=== PATIENT | male | born 1955 | race Caucasian/White ===

== ENCOUNTER → 2016-07-11 | Outpatient (CLI) | payer BC ==
[~2016-07-11] MED LIST: CLX20 PO; NAPR-1169 PO; OMEP40CA PO
[2016-07-11 18:02] LABS: ALT/SGPT 60 U/L (12-78); BLOOD UREA NITROGEN 20 mg/dl (7-18); BUN/CREATININE RATIO 23.8 (10-20); CALCIUM 9.4 mg/dl (8.5-10.1); CARBON DIOXIDE 30 mmol/L (21-32); CHLORIDE 102 mmol/L (98-107); CHOLESTEROL 284 mg/dl (0-200); CREATININE 0.82 mg/dl (0.60-1.40); GLUCOSE 89 mg/dl (70-99); POTASSIUM 3.9 mmol/L (3.5-5.1); SODIUM 140 mmol/L (136-145); TRIGLYCERIDES 326 mg/dl (0-150); VERY LOW DENSITY LIPOPROT CALC 65 mg/dl
[2016-07-11 18:06] LABS: ALKALINE PHOSPHATASE 95 U/L (45-117); AST/SGOT 38 U/L (15-37); CHOLESTEROL/HDL RATIO 5.4; HDL CHOLESTEROL 53 mg/dl; LDL CHOLESTEROL CALCULATED 166 mg/dl
== END | disposition home or self-care (01) ==
LOC: C.LABPVFM 13:32
PROVIDERS: ATTEND Family Medicine
DX: I10 Essential (primary) hypertension (principal); E78.1 Pure hyperglyceridemia

== ENCOUNTER → 2016-08-14 | Outpatient (CLI) | payer BC ==
[2016-08-16 18:42] LABS: ALBUMIN 4.7 G/DL (3.8-4.8); GAMMA GLOBULIN 1.3 G/DL (0.8-1.7); IMMUNOFIXATION IGA SERUM 45 MG/DL (81-463); IMMUNOFIXATION IGG SERUM 1699 MG/DL (694-1618); IMMUNOFIXATION IGM SERUM 59 MG/DL (48-271); MONOCLONAL PROTEIN BAND 1 1.1 G/DL (NOT DETECTED); TOTAL PROTEIN 7.7 G/DL (6.2-8.3)
== END | disposition home or self-care (01) ==
LOC: C.LABPVFM 15:35
PROVIDERS: ATTEND Family Medicine
DX: R77.1 Abnormality of globulin (principal)

== ENCOUNTER → 2017-01-01 | Outpatient (CLI) | payer BC | END | disposition home or self-care (01) | LOC: C.RDSM 13:45 | PROVIDERS: ATTEND Physical Medicine & Rehabilitation Sports Medicine | DX: M25.561 Pain in right knee (principal) ==

== ENCOUNTER → 2017-07-11 | Outpatient (CLI) | payer BC | END | disposition home or self-care (01) | LOC: C.RDSM 16:26 | PROVIDERS: ATTEND Physical Medicine & Rehabilitation Sports Medicine | DX: M25.511 Pain in right shoulder (principal); M25.512 Pain in left shoulder ==

== ENCOUNTER → 2017-08-30 | Outpatient (CLI) | payer BC ==
[~2017-08-30] MED LIST changes: +CITA-295 PO; +FENO160T PO; +MXZC25 PO; +PRLSR20 PO
[2017-08-30 17:43] LABS: ALBUMIN 4.1 gm/dl (3.4-5.0); ALT/SGPT 43 U/L (12-78); AST/SGOT 32 U/L (15-37); BLOOD UREA NITROGEN 23 mg/dl (7-18); CALCIUM 9.5 mg/dl (8.5-10.1); CARBON DIOXIDE 26 mmol/L (21-32); CREATININE 0.98 mg/dl (0.60-1.40); GLUCOSE 95 mg/dl (70-99); POTASSIUM 4.2 mmol/L (3.5-5.1); SODIUM 137 mmol/L (136-145)
[2017-08-30 17:46] LABS: ALKALINE PHOSPHATASE 65 U/L (45-117); CHOLESTEROL 220 mg/dl (0-200); LDL CHOLESTEROL CALCULATED 135 mg/dl; TOTAL PROTEIN 8.4 gm/dl (6.4-8.2)
== END | disposition home or self-care (01) ==
LOC: C.LABPVFM 11:54
PROVIDERS: ATTEND Family Medicine
DX: F32.9 Major depressive disorder, single episode, unspecified (principal); K21.9 Gastro-esophageal reflux disease without esophagitis; I10 Essential (primary) hypertension; E78.5 Hyperlipidemia, unspecified; D47.2 Monoclonal gammopathy; E78.1 Pure hyperglyceridemia

== ENCOUNTER 2017-09-25 08:12 | Inpatient (IN) | payer BC ==
[2017-09-07 11:54] VITALS: BMI 33.0
--- NOTE | 2017-09-07 12:31 | PAT Medication Instructions ---
Service Date Sep 07, 2017. Current Home Medication List Citalopram Hydrobromide (Citalopram), 20 MG PO QAM Fenofibrate (Tricor), 160 MG PO QAM Omeprazole (Prilosec), 40 MG PO QAM Triamterene/Hctz (Triamterene/Hctz 37.5-25MG Tab), 1 TAB PO QAM Medication Instructions For Your Scheduled Surgery - Hold the following medications the morning of surgery: Fenofibrate (Tricor), 160 MG PO QAM Triamterene/Hctz (Triamterene/Hctz 37.5-25MG Tab), 1 TAB PO QAM - Take the following medications the morning of surgery with a sip of water: Citalopram Hydrobromide (Citalopram), 20 MG PO QAM Omeprazole (Prilosec), 40 MG PO QAM If you have any questions please call us at [phone] or [phone] or [phone]
--- NOTE | 2017-09-07 13:01 | DIAGNOSTIC IMAGING REPORT ---
CHEST 2 VIEWS ROUTINE HISTORY: Preop. COMPARISON: Chest 10/07/2008. FINDINGS: The lungs are clear. Cardiac silhouette is normal in size. No pleural effusions. No pneumothorax. IMPRESSION: No acute process. Electronically signed by: Devan Escamilla M.D. 09/07/2017 1:00 PM Dictated Date/Time: 09/07/2017 12:57 PM
[2017-09-07 13:24] LABS: INR 0.9 (0.9-1.1); PTT PATIENT 25.8 SECONDS (21.0-31.0)
--- NOTE | 2017-09-10 12:49 | History and Physical ---
History & Physical Date of Service Sep 10, 2017. History & Physical HISTORY & PHYSICAL Name: RADHA AHUJA : 1955 Date of Admission 09/07/2017 DATE OF SURGERY: 09/25/2017 CHIEF COMPLAINT: Right knee pain x3 years. HISTORY OF PRESENT ILLNESS: The patient is a pleasant 61-year-old male who is here today for preoperative history and physical. He is scheduled to have a right total knee arthroplasty by Dr. Arechiga on September 25, 2017, at the [facility]. He has been having issues with his right knee for many years, he states the last 30 to 40 years. He had a history of having a knee arthroscopy in 1970. He states he was doing well for a long time and then developed worsening pain over the last 3 years. He has had previous corticosteroid injections with no significant long-lasting effect. He has also had a couple of series of viscosupplementation. His last one being at the beginning of July with no significant relief. He states he has pain on a daily basis. His pain is in the front and medial aspect of his knee, radiates down into his zuniga occasionally. His pain is increased with activity and weightbearing. He has decreasing activities of daily living due to pain in his right knee. He has pain with range of motion and limited motion. He has had joint effusions in the past, which have been aspirated. He has tried nonsteroidal anti-inflammatory medications such as ibuprofen and Aleve in the past. He states that it does no longer give him too much relief either. His aggravating activities include walking, going up and down steps. He has pain at rest and pain at night. He was recently seen by Dr. Arechiga, and conservative treatment was discussed as well as surgical intervention. He wished to proceed with surgery. He has had x-rays which have confirmed end- stage degenerative joint disease of his right knee and he wished to proceed with surgery. He does not use an assistive device to assist with ambulation currently. PAST MEDICAL HISTORY: 1. Hypertension. 2. High triglycerides. 3. History of anxiety/depression. 4. History of MGUS, which is a precursor for multiple myeloma that was found for some blood work. He has not had any symptoms of that or any further workup. 5. He has had cervical spine degenerative joint disease with history of corticosteroid injections. 6. Acid reflux. 7. Hiatal hernia. 8. Tobacco use. CURRENT MEDICATIONS: 1. Citalopram 20 mg p.o. daily. 2. Hydrochlorothiazide/triamterene 25/37.5 mg daily. 3. Fenofibrate 160 mg daily. 4. Naproxen 550 mg as needed for arthritis, which he takes on a rare occasion as it no longer helps him. 5. Omeprazole 40 mg p.o. daily. ALLERGIES: HE IS ALLERGIC TO CODEINE WHICH CAUSES A RASH AND HYPERACTIVITY. He states that he has tolerated other pain medications without any issues. FAMILY HISTORY: His father had a history of type 2 diabetes and at the age of 60 with colon cancer. His mother had a history of esophageal cancer and at the age of 76. PAST SURGICAL HISTORY: 1. Bilateral carpal tunnel release. 2. Knee spur removed from his left knee in 1968. 3. Rhinoplasty in 1999. 4. Right shoulder rotator cuff repair of his right shoulder. He has also had a left shoulder arthroscopy in the past. 5. Right knee arthroscopy in 1970 and appendectomy in 2009. 6. Lasik surgery approximately 3-4 years ago. SOCIAL HISTORY: He does smoke cigarettes. He states 1-2 cigarettes per day. He just started about 5 months ago. He states that it is stress related, and he quit drinking alcohol. He states that he is able to quit and I recommended he quit as soon as possible. Denies any alcohol use or drug use at this time. He lives with his . He does not use an assistive device to assist with ambulation. He does have crutches available to use after surgery and potentially a walker. He would like to go home after surgery with outpatient physical therapy. REVIEW OF SYSTEMS: He denies any headaches, migraine, seizures, syncopal episodes, lightheadedness, or dizziness. He denies any recent cough, cold, fevers, chills, or flu-like symptoms. He denies any recent hospitalizations. He denies any history of bleeding or clotting disorders, blood clots, embolisms , or phlebitis, history of frequent infections, poor wound healing, or MRSA. Denies any chest pain or shortness of breath. Denies any heart palpitations. He states he occasionally gets heartburn, but the medication that he takes helps with that. He denies any abdominal pain, nausea, vomiting, diarrhea, or constipation. He denies any urinary symptoms such as foul-smelling urine frequency or urinary tract infections. He states that he urinates normal for a 61-year-old male. Denies any prostate problems. PHYSICAL EXAM: General: He is alert and oriented x3. He is in no acute distress. He is a well-dressed, well-nourished male. Normal mood and affect. Height is 6 feet 0 inches, and weight is 235 pounds. HEENT: Head is atraumatic , normocephalic. Extraocular movements are intact. Pupils are equal, round, and reactive to light. Sclerae are normal. Ears, hearing is grossly normal. TMs are clear with normal light reflex. Nose, nares are patent bilaterally. Normal turbinates. Throat, oropharynx is clear. Mucous membranes moist. Good dentition. Uvula midline. Neck: Supple. Nontender to palpation. Tolerates gentle range of motion with some crepitation. No carotid bruits. Trachea midline. Lungs: Clear to auscultation bilaterally. No adventitious sounds. No accessory muscle use. His chest is nontender to palpation. Heart is regular rate and rhythm. Normal S1, S2. No murmurs appreciated. Abdomen is soft, mildly obese, nondistended. Bowel sounds are heard in all 4 quadrants. On exam of his right knee, he is able to independently straight leg raise. He ambulates with a slight antalgic gait with no assistive device today. He is able to extend his knee to 0-5-115 degrees of flexion. He has tenderness in the lateral side of the knee with a small effusion. He has a 2+ posterior tibial pulse. He has a healed lateral incision over the knee. Cruciate and collateral ligaments are intact without notable laxity, positive valgus alignment. Strength is normal. Toes, ankle, knee flexion and extension are intact. He has intact straight leg raise. Full hip range of motion without any discomfort today. RADIOLOGY IMAGES: X-rays of his knee show severe lateral compartment osteoarthritis of the right knee with [id number] changes. There is no fracture identified. There is osteophyte formation, subchondral sclerosis. No previous fracture or evidence of hardware. IMPRESSION: End-stage osteoarthritis of his right knee with valgus alignment. PLAN: The patient is scheduled for an elective right total knee arthroplasty with Dr. Arechiga on September 25, 2017, at the [facility]. Risks and complications of surgery were explained to the patient and include but are not limited to, infection, pain, bleeding, scarring, nerve and blood vessel damage, wound problems, weakness, stiffness, incomplete relief of symptoms, hardware failure, loosening, wear, fracture, postop manipulation, blood clot, embolism, heart attack, stroke, and . All questions were answered, and informed consent was obtained. He will be admitted to the hospital for a day or 2 after surgery. He would like to go home with his to attend outpatient physical therapy after surgery. He was given a prescription for a rolling walker as he most likely will need this after surgery, and if he does not have one available to him, he can get one with his local DME provider. We discussed pain medication. He is okay with oxycodone and hydrocodone, which we can use postoperatively. Dental prophylaxis after surgery was discussed. He was instructed only usage of CHG cloths prior to surgery. He will have preadmission testing later today in which we will obtain a preoperative CBC, BMP , PT, PTT, type and screen, chest x-ray, EKG. He will also need medical clearance from his family physician, Dr. Meli Durand. He does have an appointment scheduled in the beginning of September with her. All questions were answered today. He knows to call with any further problems, questions, or concerns. We will use Lovenox for DVT prophylaxis for 2 weeks after surgery and then aspirin 325 mg twice daily after surgery. A prescription for therapy was also provided to him today.
[~2017-09-25] VITALS: Ht 182.9 cm; Wt 111.1 kg
[2017-09-25] VITALS (8 sets, daily range): BP systolic 106–122; BP diastolic 63–76; PULSE 54–66; TEMP 36.6–37; O2SAT 94–96; Ht 182.9 cm; Wt 111.1 kg
[~2017-09-25 08:12] MED LIST changes: +ACETAMINOPHEN 500 MG TAB PO SCH; +BUPIVACAINE 0.5 % 5 MG/1 ML PF 10ML VIAL ONE; +CEFAZOLIN 2000MG IV PUSH 15 ML IV SCH; +CLONIDINE HCL 0.1 MG/24 HR TRANSDERM SYS TD SCH; -CLX20 PO; +CeleBREX 200 MG CAP PO SCH; +DEXAMETHASONE 4 MG TAB PO SCH; +FAMOTIDINE 20 MG TAB PO SCH; +GABAPENTIN 600 MG PO SCH; +LACTATED RINGER'S 1000ML 1,000 ML IV SCH; +LACTATED RINGER'S 1000ML 500 ML IV SCH; +LACTATED RINGER'S 1000ML IV SCH; +METOCLOPRAMIDE HCL 10 MG TAB PO SCH; -NAPR-1169 PO; -OMEP40CA PO; +OXYCODONE HCL 10 MG TABCR (OXYCONTIN) PO SCH; +ROPIVACAINE 5MG/ML 30 ML 150 MG, BUPIVACAINE 0.5% MPF INJ 30 ML, EpINEphrine HCL INJ 0.... INFIL SCH; +TRAMADOL HCL 50 MG TAB PO SCH; +TRANEXAMIC ACID INJ 1,000 MG x 1 Bag Intra-Op IV SCH
[2017-09-25] MEDS ORDERED: NAPR1TAB9 PO (08:44)
--- NOTE | 2017-09-25 09:02 | DIAGNOSTIC IMAGING REPORT ---
R TIBIA/FIBULA 2 VIEWS ROUTINE HISTORY: 61 years-old Male pre op right TKA degenerative joint disease of the right knee with chronic right knee pain COMPARISON: None available TECHNIQUE: 2 views of the right tibia and fibula FINDINGS: No acute fracture or dislocation. Tricompartmental osteoarthritis about the knee appears severe. Small joint effusion is suspected. No opaque foreign body. IMPRESSION: 1. No acute fracture or dislocation. 2. Tricompartmental osteoarthritis about the knee with suggested small joint effusion. The above report was generated using voice recognition software. It may contain grammatical, syntax or spelling errors. Electronically signed by: Delbert Carlin M.D. 09/25/2017 9:00 AM Dictated Date/Time: 09/25/2017 8:59 AM
[2017-09-25] MEDS ORDERED: MIDAZOLAM HCL 1 MG/ML 2ML VIAL ONE ×2 (09:08→12:04)
[2017-09-25] MEDS ORDERED: EpHEDrine SULFATE INJ 50 MG/ML AMP IV PRN (09:30)
[2017-09-25] MEDS ORDERED: ATROPINE SULFATE 0.1 MG/ML 5ML SYR IV PRN (09:30)
[2017-09-25] MEDS ORDERED: ONDANSETRON INJ 2 MG/ML 2 ML VIAL IV PRN ×2 (09:30→14:30)
[2017-09-25] MEDS ORDERED: FENTANYL CITRATE INJ 50 MCG/1 ML 2 ML VIAL IV PRN (09:30)
--- NOTE | 2017-09-25 09:34 | History & Physical Bridge Note ---
H&P Re-Evaluation Bridge Note: I have examined the patient, reviewed the History & Physical and in the interval since the performance of the History & Physical I have noted the following changes of clinical significance: No changes noted
[2017-09-25] MEDS ORDERED: FENTANYL CITRATE INJ 50 MCG/1 ML 2 ML VIAL ONE (09:38)
[2017-09-25] MEDS ORDERED: BACITRACIN 50000 UNIT VIAL ONE (10:03)
[2017-09-25] MEDS ORDERED: POVIDONE-IODINE OP SOLN 30 ML BTL ONE (10:03)
[2017-09-25] MEDS ORDERED: ORTHO JOINT ANESTHETIC ONE (10:03)
[2017-09-25] MEDS ORDERED: TRANEXAMIC ACID INJ 1,000 MG in SODIUM CHLORIDE 0.9% 100ML 100 ML IV SCH (11:00)
[2017-09-25] MEDS ORDERED: PROPOFOL IV EMULSION 10 MG/ML 20 ML VIAL ONE ×3 (12:07→13:27)
[2017-09-25] MEDS ORDERED: LIDOCAINE HCL 2% 2 ML VIAL (20MG/ML) ONE (12:07)
--- NOTE | 2017-09-25 14:03 | [facility] Post Operative Brief Note ---
Immediate Operative Summary Operative Date September 25, 2017. Pre-Operative Diagnosis End-stage osteoarthritis of his right knee with valgus alignment Post-Operative Diagnosis End-stage osteoarthritis of his right knee with valgus alignment Procedure(s) Performed Right total knee arthroplasty Surgeon Dr. Anshul Arechiga Grain Shoveler Surgeon(s) Ashanti aleman Estimated Blood Loss 100ml Findings Consistent with Post-Op Diagnosis Specimens A. Bone and tissue right knee Drains None Anesthesia Type MAC Spinal Regional Complication(s) none Disposition Accompanied Pt To Recover: no Disposition: Recovery Room / PACU
[2017-09-25] MEDS ORDERED: BISACODYL 10 MG SUPP PR PRN (14:30)
[2017-09-25] MEDS ORDERED: TAMSULOSIN HCL 0.4 MG CAP PO PRN (14:30)
[2017-09-25] MEDS ORDERED: METOCLOPRAMIDE HCL INJ 5 MG/ML 2 ML VIAL IV PRN (14:30)
[2017-09-25] MEDS ORDERED: ACETAMINOPHEN 325 MG TAB PO PRN (14:30)
[2017-09-25] MEDS ORDERED: KETOROLAC TROMETHAMINE 30 MG/ML VIAL IV. SCH (14:30)
[2017-09-25] MEDS ORDERED: MAGNESIUM HYDROXIDE SUSP 30 ML UDC PO PRN (14:30)
[2017-09-25] MEDS ORDERED: SOD PHOSPHATE/SOD BIPHOSPHATE ENEMA 132 ML BTL PR PRN (14:30)
[2017-09-25] MEDS ORDERED: DiphenhydrAMINE HCL 50 MG/ML VIAL IV PRN (14:30)
[2017-09-25] MEDS ORDERED: MoRPHine SULFATE 4 MG/ML 1 ML CARP\\VIAL IV PRN (14:30)
--- NOTE | 2017-09-25 14:38 | [facility] Operative Report ---
Operative Report Operative Date September 25, 2017. Pre-Operative Diagnosis End-stage osteoarthritis of his right knee with valgus alignment Post-Operative Diagnosis End-stage osteoarthritis of his right knee with valgus alignment Procedure(s) Performed Right total knee arthroplasty Surgeon Dr. Anshul Arechiga Marketing Services Coordinator Surgeon(s) Ashanti aleman Estimated Blood Loss 100ml Specimens A. Bone and tissue right knee Drains None Anesthesia Type MAC Spinal Regional Complication(s) none Disposition no Recovery Room / PACU Indications Patient is a 61-year-old male with right knee pain refractory to nonsurgical methods of management. He has had a prior lateral meniscectomy done approximately 40 years ago. Description of Procedure Informed consent obtained. Patient identified as page Jennifer. Preop surgical timeout performed. Preop dose of IV antibiotics given. Positioned supine bump under the right hip and right knee. Tourniquet on right thigh. Prepped and draped in usual sterile fashion. DVT prophylaxis with foot pumps intraoperatively. DVT prophylaxis postoperatively with early mobility Lovenox and mechanical devices. Exam under anesthesia demonstrated range 0/10/110 with valgus alignment and no significant collateral ligament laxity. The patient had a previous lateral incision for lateral meniscectomy. I marked out a curvilinear medial incision no closer than 7 cm to this prior lateral incision. Tourniquet inflated after exsanguinating the leg. Tourniquet set at 250 mmHg. A curvilinear medial incision was made lateral flap was elevated. Medial parapatellar arthrotomy performed. Soft tissue on the superior aspect of the distal femur was removed. A medial release was performed initially conservative but due to difficulty subluxating the knee this was extended around the posterior medial corner and the semimembranosus needed to be released. Retropatellar fat pad was resected and the synovial reflection in the lateral gutter was released. A pin was placed into the tibial tubercle to protect the patellar tendon. Due to the significant lateral scarring abnormal proximal tibial geometry went ahead and did a quadriceps snip and remove the pin. After debriding more of the cruciate ligaments and more medial release I was able to subluxate the tibia. The ACL was attenuated and likely chronically torn PCL intact. There was significant scarring laterally lateral meniscus was absent and there was wear into the posterior lateral tibial plateau of about 3- 5 mm. Medial compartment looked relatively normal. The trochlea showed grade 2 and 3 chondrosis. There were large osteophytes throughout the knee which were removed including the patella. The patellar articular cartilage was softened and probably had no more than grade 2 chondrosis in the median ridge but there were large marginal osteophytes around the patella. Based upon preoperative templating the starting point for the tibial intramedullary alignment guide was anterior to the medial tibial spine. The spot was identified and commercial pilot hole was drilled in place. The patient's tibial plateau was significantly angled posteriorly i.e. posterior slope. And it was also offset posteriorly. The guide was aligned to the medial third of the tibial tubercle and pinned in place. I initially went with a conservative resection of 6 mm off of the medial side which corresponds to a partial cut laterally leaving several millimeters of the posterior medial depression. Care was taken to expose laterally again with the significant scarring and define the lateral border of the tibial plateau. The extra medullary alignment jevon was utilized confirming slope and varus valgus alignment. The cut was then made. Attention is turned the distal femur where commercial pilot hole was drilled into the distal medial femur followed by insertion of the cutting guide set at a 12 mm distal cut angled at 6 based upon preoperative templating. The guide was pinned into place and the cut was made but our extension gap was tight and asymmetric. I went ahead and cut to and then an additional 2 mm off of the proximal tibia and added 3 posterior slope. This resulted in a tight 8 laterally and a 10 medially. I believe that this could be a correctable soft tissue balancing and effort no further cutting was necessary. The tibia was sized to a 5 and eventually the keel was drilled and punched in the trial was inserted. On the femur the the distal femoral sizing guide was applied and sized to a 5. The external rotation drill holes were made and parallel to the epicondylar axis. Care was taken to avoid internal rotation of the femoral component. The guide was then pinned in place and the anterior posterior cuts and chamfer cuts were made taking care to protect the collateral ligaments. Large osteophytes were noted in the back of the knee and there was a extraordinarily large osteophyte versus a very large fabella in the back of the lateral side of the knee. This was all removed carefully. The flexion gap was an asymmetric tight 8 on the medial side. I went ahead and went back and rechecked all my bony cuts and everything looked appropriate. I then went ahead and performed an inverted cruciform release. The superior geniculate vessels were identified. The lateral soft tissues were then released and the subcutaneous tissues with a knife down the level of the tibia and then from the level of the LCL to the patellar tendon at the level of the joint line. This improved the tightness in extension. The knee remained tight in flexion. I then went ahead and fractionally released to the the lateral collateral ligament. The popliteus tendon was not encountered and may have been pathologically gone. The box cutting guide was applied. Lateralized and the box cut was made. The trial femur was applied and the knee was reduced. There was full extension neutral alignment trace MCL laxity in mid position otherwise the knee was stable. Perhaps a trace bit of MCL laxity at 90 flexion. Attention was turned to the patella where the patella thickness measured 30.5 mm. A 41 mm oval dome patella was selected. The guide was set to preserve 18 mm of bone. The cut was made cartilage medially was removed. The patellar paddle was aligned medial and distal and appropriately aligned to the slightly flexed knee. This was done with tension on the quadriceps as well. The lug holes were drilled and patella tracking was then was fine with no hands technique. At this time the tourniquet was let down meticulous hemostasis was performed copious irrigation with saline was performed. Components were prepared on the back table the canals were plugged and after a being down for approximately 20 minutes the leg was re-exsanguinated. The bony surfaces were prepared with pulse lavage and meticulously dried. Or the joint mix was injected in the back of the knee previously. The femur tibia and patella were cemented in place and held in extension with a trial spacer. Extraneous cement was removed. The back of the knee was inspected once the cement had hardened. We did not lavage was performed for a 3 -5 minutes. Trialing again was performed and the 10 mm thick spacer showed trace laxity at mid position and 90. Otherwise there was intact stability and good patellar tracking for extension. Final polyethylene spacer was inserted. TXA was given. Composite patellar thickness was 30 mm. Morton assisted flexion was 120 the knee was fully straight. The back of the knee was inspected for cement removed as encountered. The extensor mechanism was closed first by repairing the quadriceps snip with #2 FiberWire. Then this was repaired with interrupted #2 FiberWire throughout the length of the extensor mechanism down to the equator the patella. This gave a solid repair of the knee could be flexed 220 without any undue tension on the repair or gaping. Patellar tracking was fine. Below the equator the patella this was repaired with interrupted #1 Vicryl's. The skin was closed in layers with 0 2-0 Vicryl maryjane on skin soft sterile dressing was applied Xeroform 4 x 4's ABD and full-length Kurtis wrap. Patient sent to the floor with a knee immobilizer. Components inserted for the [employer] PFC Sigma rotating platform knee size 5 right posterior stabilized femur a size 5 tibial tray with a 10 mm thick posterior stabilized rotating platform polyethylene insert and a 41 mm 3 peg oval dome patella. Patient is awake from anesthesia without difficulty and taken to the recovery room in stable condition. There were no complications. Specimens were the resected bone. Counts were correct in the case. Blood loss was 100 cc. At the conclusion operation there was no unavailable to speak to. The patient will be rehabilitated according to the total knee protocol. I will limit his flexion to 90 all in the hospital due to his quadriceps snip. I attest to the content of the Intraoperative Record and any orders documented therein. Any exceptions are noted below.
--- NOTE | 2017-09-25 14:45 | [facility] Operative Report ---
Operative Report Operative Date September 25, 2017. Pre-Operative Diagnosis End-stage osteoarthritis of his right knee with valgus alignment Post-Operative Diagnosis End-stage osteoarthritis of his right knee with valgus alignment Procedure(s) Performed Right total knee arthroplasty Surgeon Dr. Anshul Arechiga Machine Packer Surgeon(s) Ashanti aleman Estimated Blood Loss 100ml Specimens A. Bone and tissue right knee Drains None Anesthesia Type MAC Spinal Regional Complication(s) none Disposition no Recovery Room / PACU Description of Procedure Patient was taken to the operating room, placed under spinal sedation. He was given IV Ancef for surgical prophylaxis. Time out performed, prepped and draped in routine sterile fashion. I was present during the entire case, please see Dr. Arechiga's operative report for further detail. Patient was awakened and taken to the recovery room in stable condition. I attest to the content of the Intraoperative Record and any orders documented therein. Any exceptions are noted below.
--- NOTE | 2017-09-25 15:06 | DIAGNOSTIC IMAGING REPORT ---
R KNEE 1 OR 2 VIEWS ROUTINE HISTORY: 61 years-old Male AP/LATERAL IN PACU RIGHT KNEE right knee total joint arthroplasty. Degenerative joint disease. COMPARISON: Right tibia and fibula radiographs 09/25/2017 TECHNIQUE: 2 views of the right knee FINDINGS: Postoperative changes from right knee total joint arthroplasty and patella resurfacing. Alignment is satisfactory without periprosthetic fracture or retained foreign body. Anterior midline skin maryjane are noted in addition to expected postsurgical soft tissue swelling and deep tissue air. IMPRESSION: Right knee arthroplasty and patella resurfacing with satisfactory alignment. The above report was generated using voice recognition software. It may contain grammatical, syntax or spelling errors. Electronically signed by: Delbert Carlin M.D. 09/25/2017 3:04 PM Dictated Date/Time: 09/25/2017 3:03 PM
--- NOTE | 2017-09-25 15:07 | Anesthesiology Progress Note ---
Anesthesia Post Op Note Date & Time September 25, 2017 at 15:07 Vital Signs Pain Intensity: 0 Vital Signs Past 12 Hours Date Time Temp Pulse Resp B/P (MAP) Pulse Ox O2 Delivery O2 Flow Rate FiO2 09/25/17 15:00 36.4 62 16 126/69 97 Nasal Cannula 3 09/25/17 14:50 62 16 118/67 98 Nasal Cannula 3 09/25/17 14:40 62 16 120/66 95 Oxymask 3 09/25/17 14:31 36.3 65 16 119/66 98 Oxymask 5 09/25/17 08:52 36.7 54 18 122/76 95 Room Air Notes Mental Status: alert / awake / arousable, participated in evaluation Pt Amnestic to Procedure: Yes Nausea / Vomiting: adequately controlled Pain: adequately controlled Airway Patency, RR, SpO2: stable & adequate BP & HR: stable & adequate Hydration State: stable & adequate Neuraxial Anesthesia: was administered, sensory block is resolving Anesthetic Complications: no major complications apparent
[2017-09-25] MEDS: OXYCODONE HCL IR 5 MG TAB (IMMEDIATE RELEASE) PO PRN ×2 (16:40→23:01)
[2017-09-25] MEDS: D5W AND 1/2NSS + 20MEQ KCL 1,000 ML IV SCH (16:53)
--- NOTE | 2017-09-25 17:05 | Progress Note ---
Progress Note Date of Service September 25, 2017. Progress Note Pain well controlled. No chest pain or shortness of breath. Afebrile vital signs are stable. Posterior tib 1+ foot warm sensation normal throughout the foot ankle into plantarflexion and dorsiflexion strength 5 out of 5. Dressing is clean and dry. Findings of surgery are discussed. He is stable postoperatively. Radiographs of the knee show no evidence of complication with good alignment of the knee and positioning of the prosthesis. He is educated to ask for pain medication. We talked about DVT prophylaxis and physical therapy. I will hold on any knee motion greater than 90 at this time. Follow- up with the patient in the morning. He will have routine PT.
[2017-09-25] MEDS ORDERED: KETOROLAC TROMETHAMINE 30 MG/ML VIAL IV. PRN (17:15)
[2017-09-25 18:20] LABS: CREATININE 0.9 mg/dl (0.60-1.40)
[2017-09-25] MEDS: CEFAZOLIN IV 2,000 MG in SYRINGE 0 ML IV SCH (18:28)
[2017-09-25] MEDS: DOCUSATE SODIUM 100 MG CAP PO SCH (20:43)
[2017-09-26] MEDS: CEFAZOLIN IV 2,000 MG in SYRINGE 0 ML IV SCH (02:30)
[2017-09-26] MEDS: D5W AND 1/2NSS + 20MEQ KCL 1,000 ML IV SCH ×2 (02:30→13:00)
[2017-09-26] MEDS: OXYCODONE HCL IR 5 MG TAB (IMMEDIATE RELEASE) PO PRN ×4 (03:23→22:34)
[2017-09-26 03:30] VITALS: BP 111/64; PULSE 61; TEMP 36.7; O2SAT 94
[2017-09-26] MEDS ORDERED: DEXAMETHASONE 4 MG TAB PO SCH (07:30)
[2017-09-26 08:18] VITALS: BP 106/61; PULSE 56; TEMP 36.9; O2SAT 95
--- NOTE | 2017-09-26 08:18 | PROGRESS NOTE ---
DATE: 09/26/2017 SUBJECTIVE: He is resting comfortably in bed. Pain is well-controlled with oral medicines. He does not have any issues with numbness, tingling, chest pains, or shortness of breath. OBJECTIVE: He is afebrile. His vital signs are stable. His urine output is adequate. LABORATORY DATA: Labs currently are pending. PHYSICAL EXAMINATION: His dressing is clean and dry. He can do a straight leg raise with minimal lag. Dorsalis pedis is 1+. The foot is not swollen. He has normal sensation throughout the foot and has 5/5 ankle and toe plantar flexion and dorsiflexion strength. IMPRESSION: Right total knee arthroplasty. PLAN: X-rays reviewed with the patient. We talked about wound hygiene, hand washing, and physical therapy. We also talked about not overdoing with leg lifts, knee bending, and physical therapy. He will do the therapy as an outpatient. Will follow up on his labs today. He will have PT. Lovenox will begin this morning and will likely continue for 2 weeks postoperatively.
[2017-09-26 08:28] LABS: HEMATOCRIT 30.9 % (42-52); HEMOGLOBIN 10.8 g/dL (14.0-18.0); MEAN CELL VOLUME 80.7 fL (80-100); MEAN CORPUSCULAR HEMOGLOBIN 28.2 pg (25-34); MEAN PLATELET VOLUME 9.8 fL (7.4-10.4); PLATELET COUNT 142 K/uL (130-400); RED CELL DISTRIBUTION WIDTH CV 13.9 % (11.5-14.5); RED CELL DISTRIBUTION WIDTH SD 40.6 fL (36.4-46.3); WHITE BLOOD COUNT 5.38 K/uL (4.8-10.8)
[2017-09-26] MEDS: CITALOPRAM 20 MG TAB PO SCH (09:16)
[2017-09-26] MEDS: TRIAMTERENE/HCTZ 37.5/25MG TAB PO SCH (09:16)
[2017-09-26] MEDS: DOCUSATE SODIUM 100 MG CAP PO SCH ×2 (09:16→21:19)
[2017-09-26] MEDS: MULTIVITAMIN TAB PO SCH (09:16)
[2017-09-26] MEDS: PANTOprazole SOD 40 MG TAB PO SCH (09:16)
[2017-09-26] MEDS: ENOXAPARIN 30 MG/0.3 ML SYR SQ SCH ×2 (09:17→21:19)
[2017-09-26 11:31] VITALS: BP 127/69; PULSE 60; TEMP 36.7; O2SAT 96
[2017-09-26] MEDS: TRAMADOL HCL 50 MG TAB PO PRN ×2 (11:53→23:11)
[2017-09-26 16:12] VITALS: BP 116/68; PULSE 60; TEMP 36.5; O2SAT 96
[2017-09-26] MEDS: CeleBREX 200 MG CAP PO SCH (21:19)
[2017-09-26 22:55] VITALS: BP 122/66; PULSE 62; TEMP 37.2; O2SAT 92
[2017-09-27] MEDS: OXYCODONE HCL IR 5 MG TAB (IMMEDIATE RELEASE) PO PRN ×3 (02:46→14:26)
[2017-09-27] MEDS: TRAMADOL HCL 50 MG TAB PO PRN ×2 (06:35→11:59)
[2017-09-27 07:37] VITALS: BP 107/63; PULSE 56; TEMP 36.9; O2SAT 95
--- NOTE | 2017-09-27 08:12 | Orthopedic Progress Note ---
Orthopedic Progress Note Date of Service September 27, 2017. Subjective Post OP Day: 2 Reports: feeling well, pain controlled w PO medications, Denies: chest pain, SOB , nausea / vomiting, light headedness, calf pain Additional Notes: States increased pain today, but pain medication helping. Objective calves soft nontender, N/V intact, capillary refill less than 2 sec., dressing C /D/I, incision C/D/I, A&O x3, toes mobile Strength 5/5. Distal pulses 1+ right lower extremity. Anderson stocking in place. Incision clean, dry and intact. Latham retained and intact. Tolerates ankle and hip range of motion without discomfort. No distal edema. Distal sensation and motor function normal. He is unable to actively straight leg raise his right lower extremity today. Pain is a limiting factor. Mild ecchymosis around the incision. No fracture blisters present. Date Time Temp Pulse Resp B/P (MAP) Pulse Ox O2 Delivery O2 Flow Rate FiO2 09/27/17 07:37 36.9 56 16 107/63 (78) 95 Room Air 09/26/17 23:45 Room Air 09/26/17 22:55 37.2 62 16 122/66 (84) 92 Room Air 09/26/17 16:12 36.5 60 16 116/68 (84) 96 Room Air 09/26/17 15:49 Room Air 09/26/17 11:31 36.7 60 18 127/69 (88) 96 Room Air 09/26/17 08:18 36.9 56 16 106/61 (76) 95 Room Air Assessment & Plan Assessment: Postop day 2-right total knee arthroplasty Plan: Ice and elevation to right lower extremity as needed for pain and swelling. Weight-bear as tolerated with walker assistance. Physical therapy and occupational therapy today as ordered. Regular diet as ordered. Pain medications as ordered. Lovenox 30 mg twice daily 14 days postoperatively for DVT prophylaxis. ANDERSON stockings in place. Exercises encouraged at bedside. He has outpatient physical therapy scheduled. All questions were answered today. Will discuss findings with Dr. Arechiga. Plan for discharge today with outpatient physical therapy. Pain medication scripts will be provided. Discharge Planning Discharge Planning: home with oppt Pain Management: Percocet, Ultram, PO Tylenol DVT Prophylaxis: TEDs, Lovenox Therapy: Physical Therapy
[2017-09-27] MEDS ORDERED: ULT50X PO (08:16)
[2017-09-27] MEDS ORDERED: OXYC-57 PO (08:16)
[2017-09-27] MEDS ORDERED: CLC100 PO (08:16)
[2017-09-27] MEDS ORDERED: LVNIS30 SQ (08:16)
[2017-09-27] MEDS ORDERED: MULT-890 PO (08:16)
--- NOTE | 2017-09-27 08:17 | Discharge Instructions ---
Discharge Instructions Date of Service September 26, 2017. Admission Reason for Admission: Right Knee Degenerative Joint Disease Discharge Discharge Diagnosis / Problem: Right knee Degenerative Joint Disease Discharge Goals Goal(s): Decrease discomfort, Improve function, Increase independence Activity Recommendations Activity Limitations: per Instructions/Follow-up section Weightbearing Status: Right weightbearing (as tolerated) . Instructions / Follow-Up Instructions / Follow-Up New Medicine: * You will likely be taking one or more of these medications: 1. Lovenox - You will be on Lovenox for 2 weeks after surgery to prevent blood clots. The CBC blood test will need to be on Sunday after surgery. Do not take anti- inflammatory pills (Advil or Aleve) while on Lovenox. Aspirin, 81 mg is OK. 2. Percocet - Take, as directed, when you need it, every four to six hours to control your pain. 3. Colace & Senokot - Take to prevent constipation which can be caused by narcotics. These can be bought [id number] at the pharmacy. Take Colace twice daily while on pain medication, take Senokot as needed for constipation. * The most common side effects of pain medicine are nausea and constipation. If nausea or constipation is too much of a problem or if you have any questions about your new medicines or doses, call [facility] at . We will try to help you manage these issues. VERY IMPORTANT TO READ AND REVIEW" Blood Clots and Blood Thinning Medicine: * You are given Lovenox during the immediate post-operative period to lessen the risk of blood clots forming in your legs and/or lungs. Lovenox is usually given for 2-4 weeks after surgery. * The prescription is for 30 mg twice daily. At discharge, you should understand your dose and take it all at the same time every day. * You need to get your blood checked on Sunday. A prescription for this was provided to you at the time of discharge from the hospital. Physical Therapy: * Do your physical therapy at home. These are the exercises you learned while in the hospital (quad sets, leg raises, calf pumps, gluteal squeezes, knee bending, and heel props.) You should do these exercises 3-4 times per day. * You will either go to inpatient rehab ([facility]), home with Home Therapy and nursing or home with outpatient rehab. You should do rehab with the therapist 2-3 times per week. You should do therapy on your own daily. * You may bear full weight on your leg with crutches or walker unless otherwise advised. Home Exercise: * You were shown a series of exercises (heel props, heel slides, etc.) in the hospital. Do these exercises three to four times each day including the exercises you were shown in physical therapy. Walking: * You may be up for short periods of time. Standing and walking for 1-2 hours at a time is usually okay. You should not stand or walk for excessive periods of time as this may cause increased pain and swelling. SELF CARE INSTRUCTIONS AFTER TOTAL KNEE REPLACEMENT A. You may need to continue a physical therapy program after discharge from the hospital. There are several options available to you. Your doctor will assist you in selecting the best one for you. 1. An out-patient facility 2 to 3 times a week for therapy or home therapy. 2. Continue working on all exercises taught to you in the hospital. Your goals should be to increase bending of your knee to 90 degrees and beyond and to fully straighten your knee. B. Your therapist will notify you when you are able to progress from a walker to a cane. C. Wear TEDS as much as possible.~ They may be removed at night for laundering. D. Do not place a pillow behind your knee when resting. A pillow at your ankle is okay. E. Ice your knee 15-20 minutes every 2-3 hours and elevate it above the level of your heart. F. You may shower on the fourth day after surgery using regular soap and water. Do not submerge until the wound is completely healed (approximately 2 weeks ). Until the fourth day after surgery, cover the incision/bandage with a bag or plastic wrap. G. Anyone who is touching your surgical incision area should wash their hands and wear gloves. H. Keep your incision covered with gauze pads under the ANDERSON hose until it is dry. VERY IMPORTANT TO READ AND REVIEW A. YOU WILL BE GIVEN AN ORDER AT DISCHARGE FOR PT/INR (BLOOD WORK). PLEASE HAVE THIS DONE INSTRUCTED. PLEASE CALL OUR OFFICE AFTER YOUR BLOODWORK IS COMPLETE SO WE CAN TRACK YOUR RESULTS. IF YOU ARE GOING TO OUTPATIENT PHYSICAL THERAPY, YOU WILL NEED TO GO TO OUTPATIENT TESTING TO HAVE IT DRAWN. B. There are a few signs you need to watch for after you are home. Call [facility] if you notice any of the followin. Increased severe knee pain. Some pain is expected especially when you exercise. 2. Increased swelling in your leg or knee; pain or swelling of the calf muscle in either lower leg. 3. Any fluid drainage from the incision. 4. Shortness of breath or chest pain. 5. Numbness and tingling in the surgical extremity C. Please call [facility] at if you have any concerns or questions about your operation or recovery. The doctor or his nurse will return your call promptly. D. Do not have any elective dental work or other elective procedures done for 6 weeks after your knee replacement. When you have any invasive procedure (dental cleaning, extraction, colonoscopy etc) performed, you will need to take antibiotics to prevent infection from developing in your artificial joint. Tell your other health care providers you have an artificial joint. My office will supply you with further information and the antibiotics. Call your doctor if: * Temperature above 101 degrees F. * Pain not relieved by pain medicine ordered. * Increased drainage or redness from incision. * Notify your doctor with any questions or concerns. Follow-up Visit: You will follow-up with Dr. Arechiga 10-14 days after surgery. The office number is . Avoid all tobacco products. If you need help to stop smoking, call [place] FREE QUITLINE at . This is a free call. You have a follow up appointment with Dr. Arechiga on October 05, 2017 at 10 AM. She should start physical therapy on Sunday as scheduled. Current Hospital Diet Patient's current hospital diet: Regular Diet Discharge Diet Recommended Diet: Regular Diet Procedures Procedures Performed: Right total knee arthroplasty Pending Studies Studies pending at discharge: no Laboratory Results Lipid Panel Test 08/30/17 12:00 Range/Units Triglycerides Level 168 H 0-150 mg/dl Cholesterol Level 220 H 0-200 mg/dl HDL Cholesterol 51 mg/dl Cholesterol/HDL Ratio 4.3 LDL Cholesterol, Calculated 135 mg/dl Medical Emergencies . Who to Call and When: Medical Emergencies: If at any time you feel your situation is an emergency, please call 911 immediately. . Non-Emergent Contact Non-Emergency issues call your: Surgeon Call Non-Emergent contact if: temperature is above 101, your pain is not controlled, your pain is concerning you, wound has increased drainage, wound has increased redness, wound has increased pain, you have any medication questions . "Provider Documentation" section prepared by Ashanti Kirkland. . [place] Drug Monitoring Program Search Results: patient reviewed within database, no issues identified
[2017-09-27] MEDS: MULTIVITAMIN TAB PO SCH (08:40)
[2017-09-27] MEDS: TRIAMTERENE/HCTZ 37.5/25MG TAB PO SCH (08:40)
[2017-09-27] MEDS: CITALOPRAM 20 MG TAB PO SCH (08:40)
[2017-09-27] MEDS: CeleBREX 200 MG CAP PO SCH (08:40)
[2017-09-27] MEDS: PANTOprazole SOD 40 MG TAB PO SCH (08:40)
[2017-09-27] MEDS: ENOXAPARIN 30 MG/0.3 ML SYR SQ SCH (08:41)
[2017-09-27] MEDS: DOCUSATE SODIUM 100 MG CAP PO SCH (08:46)
[2017-09-27 11:49] VITALS: BP 107/63; PULSE 56; TEMP 36.9; O2SAT 95
--- NOTE | 2017-09-27 16:35 | Discharge Summary ---
Discharge Summary Date of Service September 27, 2017. Discharge Summary Admission Date: September 25, 2017 at 08:29 Discharge Date: September 27, 2017 Discharge Disposition: Home Principal Diagnosis: DJD right knee Procedures: Right total knee arthroplasty by Dr. Arechiga on September 25, 2017 Pending Studies/Follow-Up: You have a follow up appointment with Dr. Arechiga on October 05, 2017 at 10 AM. Medication Reconciliation New Medications: Oxycodone/Acetaminophen 5MG/325MG (Percocet 5MG/325MG) Tab 1-2 TABLETS PO Q4H PRN for Pain, #30 TAB Docusate Sodium (Docusate Sodium) 100 Mg Cap 100 MG PO BID for 30 Days, #60 CAP 0 Refills Take while on pain medication. Hold for loose stools. Enoxaparin (Lovenox) 30 Mg/0.3 Ml Inj 30 MG SQ Q12H for 14 Days, #28 SYR 1 Refill Multiple Vitamin (Daily-Joan) 1 Tab Tab 1 TAB PO QAM for 30 Days, #30 TAB 0 Refills Tramadol HCl (Tramadol HCl) 50 Mg Tab 50-100 MG PO Q4H PRN for Pain, #30 TAB 0 Refills Continued Medications: Citalopram Hydrobromide (Citalopram) 20 Mg Tab 20 MG PO QAM Fenofibrate (Tricor) 160 Mg Tab 160 MG PO QAM, TAB Omeprazole (Prilosec) 20 Mg Capcr 40 MG PO QAM, CAP Triamterene/Hctz (Triamterene/Hctz 37.5-25MG Tab) 1 Tab Tab 1 TAB PO QAM, TAB Discontinued Medications: Naproxen (Aleve) 220 Mg Tab 220 MG PO, TAB Hospital Course Patient is a 61-year-old male he was admitted to [facility] after undergoing elective right total knee arthroplasty by Dr. Anshul Arechiga. Surgery was performed with spinal sedation and a peripheral nerve block. He was given 2 g of IV Ancef for surgical prophylaxis. He tolerated the procedure well without any intraoperative complications. Postoperatively, he was allowed out of bed, weight-bear as tolerated with the assistance of a walker and knee immobilizer. His Ancef was continued for 24 hours after surgery. His pain was controlled with oral pain medication after surgery. He was seen and evaluated by physical therapy and occupational therapy and did well with ambulation and bedside exercises. He was seen and evaluated by case management and social worker palliative care. He felt safe to go home and was starting outpatient physical therapy at the beginning of next week. He tolerated a regular diet during his stay. His dressings were changed on postoperative day 2 and his incision was clean dry and intact. He was placed on Lovenox 30 mg twice daily for DVT prophylaxis. His labs were stable during his inpatient stay. His vital signs remained stable postoperatively. All questions were answered. Discharge instructions were provided. He was discharged to his home in stable condition on September 27, 2017. Total time spent on discharge = This includes examination of the patient, discharge planning, medication reconciliation, and communication with other providers. Discharge Instructions Discharge Instructions Date of Service September 26, 2017. Admission Reason for Admission: Right Knee Degenerative Joint Disease Discharge Discharge Diagnosis / Problem: Right knee Degenerative Joint Disease Discharge Goals Goal(s): Decrease discomfort, Improve function, Increase independence Activity Recommendations Activity Limitations: per Instructions/Follow-up section Weightbearing Status: Right weightbearing (as tolerated) . Instructions / Follow-Up Instructions / Follow-Up New Medicine: * You will likely be taking one or more of these medications: 1. Lovenox - You will be on Lovenox for 2 weeks after surgery to prevent blood clots. The CBC blood test will need to be on Sunday after surgery. Do not take anti- inflammatory pills (Advil or Aleve) while on Lovenox. Aspirin, 81 mg is OK. 2. Percocet - Take, as directed, when you need it, every four to six hours to control your pain. 3. Colace & Senokot - Take to prevent constipation which can be caused by narcotics. These can be bought [id number] at the pharmacy. Take Colace twice daily while on pain medication, take Senokot as needed for constipation. * The most common side effects of pain medicine are nausea and constipation. If nausea or constipation is too much of a problem or if you have any questions about your new medicines or doses, call [facility] at . We will try to help you manage these issues. VERY IMPORTANT TO READ AND REVIEW" Blood Clots and Blood Thinning Medicine: * You are given Lovenox during the immediate post-operative period to lessen the risk of blood clots forming in your legs and/or lungs. Lovenox is usually given for 2-4 weeks after surgery. * The prescription is for 30 mg twice daily. At discharge, you should understand your dose and take it all at the same time every day. * You need to get your blood checked on Sunday. A prescription for this was provided to you at the time of discharge from the hospital. Physical Therapy: * Do your physical therapy at home. These are the exercises you learned while in the hospital (quad sets, leg raises, calf pumps, gluteal squeezes, knee bending, and heel props.) You should do these exercises 3-4 times per day. * You will either go to inpatient rehab ([facility]), home with Home Therapy and nursing or home with outpatient rehab. You should do rehab with the therapist 2-3 times per week. You should do therapy on your own daily. * You may bear full weight on your leg with crutches or walker unless otherwise advised. Home Exercise: * You were shown a series of exercises (heel props, heel slides, etc.) in the hospital. Do these exercises three to four times each day including the exercises you were shown in physical therapy. Walking: * You may be up for short periods of time. Standing and walking for 1-2 hours at a time is usually okay. You should not stand or walk for excessive periods of time as this may cause increased pain and swelling. SELF CARE INSTRUCTIONS AFTER TOTAL KNEE REPLACEMENT A. You may need to continue a physical therapy program after discharge from the hospital. There are several options available to you. Your doctor will assist you in selecting the best one for you. 1. An out-patient facility 2 to 3 times a week for therapy or home therapy. 2. Continue working on all exercises taught to you in the hospital. Your goals should be to increase bending of your knee to 90 degrees and beyond and to fully straighten your knee. B. Your therapist will notify you when you are able to progress from a walker to a cane. C. Wear TEDS as much as possible.~ They may be removed at night for laundering. D. Do not place a pillow behind your knee when resting. A pillow at your ankle is okay. E. Ice your knee 15-20 minutes every 2-3 hours and elevate it above the level of your heart. F. You may shower on the fourth day after surgery using regular soap and water. Do not submerge until the wound is completely healed (approximately 2 weeks ). Until the fourth day after surgery, cover the incision/bandage with a bag or plastic wrap. G. Anyone who is touching your surgical incision area should wash their hands and wear gloves. H. Keep your incision covered with gauze pads under the ANDERSON hose until it is dry. VERY IMPORTANT TO READ AND REVIEW A. YOU WILL BE GIVEN AN ORDER AT DISCHARGE FOR PT/INR (BLOOD WORK). PLEASE HAVE THIS DONE INSTRUCTED. PLEASE CALL OUR OFFICE AFTER YOUR BLOODWORK IS COMPLETE SO WE CAN TRACK YOUR RESULTS. IF YOU ARE GOING TO OUTPATIENT PHYSICAL THERAPY, YOU WILL NEED TO GO TO OUTPATIENT TESTING TO HAVE IT DRAWN. B. There are a few signs you need to watch for after you are home. Call [facility] if you notice any of the followin. Increased severe knee pain. Some pain is expected especially when you exercise. 2. Increased swelling in your leg or knee; pain or swelling of the calf muscle in either lower leg. 3. Any fluid drainage from the incision. 4. Shortness of breath or chest pain. 5. Numbness and tingling in the surgical extremity C. Please call [facility] at if you have any concerns or questions about your operation or recovery. The doctor or his nurse will return your call promptly. D. Do not have any elective dental work or other elective procedures done for 6 weeks after your knee replacement. When you have any invasive procedure (dental cleaning, extraction, colonoscopy etc) performed, you will need to take antibiotics to prevent infection from developing in your artificial joint. Tell your other health care providers you have an artificial joint. My office will supply you with further information and the antibiotics. Call your doctor if: * Temperature above 101 degrees F. * Pain not relieved by pain medicine ordered. * Increased drainage or redness from incision. * Notify your doctor with any questions or concerns. Follow-up Visit: You will follow-up with Dr. Arechiga 10-14 days after surgery. The office number is . Avoid all tobacco products. If you need help to stop smoking, call [place]'s FREE QUITLINE at . This is a free call. You have a follow up appointment with Dr. Arechiga on October 05, 2017 at 10 AM. She should start physical therapy on Sunday as scheduled. Current Hospital Diet Patient's current hospital diet: Regular Diet Discharge Diet Recommended Diet: Regular Diet Procedures Procedures Performed: Right total knee arthroplasty Pending Studies Studies pending at discharge: no Laboratory Results Lipid Panel Test 08/30/17 12:00 Range/Units Triglycerides Level 168 H 0-150 mg/dl Cholesterol Level 220 H 0-200 mg/dl HDL Cholesterol 51 mg/dl Cholesterol/HDL Ratio 4.3 LDL Cholesterol, Calculated 135 mg/dl Medical Emergencies . Who to Call and When: Medical Emergencies: If at any time you feel your situation is an emergency, please call 911 immediately. . Non-Emergent Contact Non-Emergency issues call your: Surgeon Call Non-Emergent contact if: temperature is above 101, your pain is not controlled, your pain is concerning you, wound has increased drainage, wound has increased redness, wound has increased pain, you have any medication questions . "Provider Documentation" section prepared by Ashanti Kirkland. . [place] Drug Monitoring Program Search Results: patient reviewed within database, no issues identified
== END 2017-09-27 16:30 | disposition home or self-care (01) | DRG 470 ==
LOC: C.ACU 08:12 → C.MSW 08:29 → ENRESERV 15:39
PROVIDERS: ADMIT Physical Medicine & Rehabilitation Sports Medicine; ATTEND Physical Medicine & Rehabilitation Sports Medicine
PROC: 0SRC0J9 Replacement of Right Knee Joint with Synthetic Substitute, Cemented, Open Approach (ICD-10-PCS; principal; 2017-09-25 10:00)
DX: M17.11 Unilateral primary osteoarthritis, right knee (principal); I10 Essential (primary) hypertension; K21.9 Gastro-esophageal reflux disease without esophagitis; F41.9 Anxiety disorder, unspecified; F32.9 Major depressive disorder, single episode, unspecified; F17.200 Nicotine dependence, unspecified, uncomplicated; Z79.899 Other long term (current) drug therapy

== ENCOUNTER → 2017-10-02 | Outpatient (CLI) | payer BC ==
[~2017-10-02] MED LIST changes: -ACETAMINOPHEN 500 MG TAB PO SCH; -BUPIVACAINE 0.5 % 5 MG/1 ML PF 10ML VIAL ONE; -CEFAZOLIN 2000MG IV PUSH 15 ML IV SCH; +CLC100 PO; -CLONIDINE HCL 0.1 MG/24 HR TRANSDERM SYS TD SCH; -CeleBREX 200 MG CAP PO SCH; -DEXAMETHASONE 4 MG TAB PO SCH; -FAMOTIDINE 20 MG TAB PO SCH; -GABAPENTIN 600 MG PO SCH; -LACTATED RINGER'S 1000ML 1,000 ML IV SCH; -LACTATED RINGER'S 1000ML 500 ML IV SCH; -LACTATED RINGER'S 1000ML IV SCH; +LVNIS30 SQ; -METOCLOPRAMIDE HCL 10 MG TAB PO SCH; +MULT-890 PO; +OXYC-57 PO; -OXYCODONE HCL 10 MG TABCR (OXYCONTIN) PO SCH; -ROPIVACAINE 5MG/ML 30 ML 150 MG, BUPIVACAINE 0.5% MPF INJ 30 ML, EpINEphrine HCL INJ 0.... INFIL SCH; -TRAMADOL HCL 50 MG TAB PO SCH; -TRANEXAMIC ACID INJ 1,000 MG x 1 Bag Intra-Op IV SCH; +ULT50X PO
[2017-10-02 14:05] LABS: HEMATOCRIT 32.1 % (42-52); MEAN CELL VOLUME 81.9 fL (80-100); MEAN CORPUSCULAR HEMOGLOBIN 28.1 pg (25-34); MEAN CORPUSCULAR HGB CONC 34.3 g/dl (32-36); MEAN PLATELET VOLUME 10.2 fL (7.4-10.4); PLATELET COUNT 268 K/uL (130-400); RED CELL DISTRIBUTION WIDTH CV 13.7 % (11.5-14.5); RED CELL DISTRIBUTION WIDTH SD 41.4 fL (36.4-46.3); WHITE BLOOD COUNT 4.31 K/uL (4.8-10.8)
== END | disposition home or self-care (01) ==
LOC: C.LABPVFM 10:58
PROVIDERS: ATTEND Physical Medicine & Rehabilitation Sports Medicine
DX: M17.11 Unilateral primary osteoarthritis, right knee (principal); Z96.659 Presence of unspecified artificial knee joint

== ENCOUNTER → 2017-10-04 | Outpatient (CLI) | payer BC ==
--- NOTE | 2017-10-04 14:09 | DIAGNOSTIC IMAGING REPORT ---
ABDOMEN LIMITED (US) HISTORY: 61 years-old Male R10.11 Intermittent right upper quadrant abdominal [id number] acute right upper quadrant abdominal pain COMPARISON: CT abdomen and pelvis 12/31/2009 TECHNIQUE: Multiple real-time sonographic images of the abdominal right upper quadrant were obtained assessing grayscale appearance and color flow FINDINGS: Pancreas is obscured by bowel gas. Liver demonstrates no focal mass or intrahepatic biliary ductal dilation. There may be slightly increased echogenicity of the liver parenchyma which is nonspecific however may reflect minimal hepatic steatosis. Multiple shadowing gallstones are seen within the gallbladder lumen. No wall thickening or pericholecystic fluid collections. Common bile duct is normal, 3 mm. 2.0 cm cyst involves interpolar right kidney. No right-sided hydronephrosis identified. IMPRESSION: 1. Cholelithiasis without sonographic evidence of acute cholecystitis. 2. Mildly increased echogenicity of the liver may reflect hepatic steatosis. 3. No biliary ductal dilation. The above report was generated using voice recognition software. It may contain grammatical, syntax or spelling errors. Electronically signed by: Delbert Carlin M.D. 10/04/2017 2:07 PM Dictated Date/Time: 10/04/2017 2:05 PM
== END | disposition home or self-care (01) ==
LOC: C.ULTRBC 13:14
PROVIDERS: ATTEND Family Medicine
DX: K80.20 Calculus of gallbladder without cholecystitis without obstruction (principal)